=== PATIENT | female | born 1970 | race Caucasian/White ===

== ENCOUNTER 2022-04-10 17:11 | Emergency (ER) | payer OTHER ==
[~2022-04-10] VITALS: Ht 154.9 cm; Wt 76.7 kg
[~2022-04-10 17:11] MED LIST: ELOCON45 G1 TP; ZYRTEC10 MG PO
[2022-04-10] MEDS ORDERED: ALBUTEROL0.63 MG/3 IH (18:14)
[2022-04-10] MEDS ORDERED: MEDROLPACK PO (20:23)
[2022-04-10] MEDS ORDERED: XOPENEX0.63 MG/3 IH (20:23)
== END 2022-04-10 20:43 | disposition home or self-care (01) ==
LOC: ER 17:11
DX: J45.909 Unspecified asthma, uncomplicated (principal); Z20.822 Contact with and (suspected) exposure to COVID-19; R06.02 Shortness of breath

== ENCOUNTER 2022-11-16 05:57 | Day surgery (SDC) | payer OTHER ==
[~2022-11-16] VITALS: Ht 157.5 cm; Wt 76.2 kg
[~2022-11-16 05:57] MED LIST changes: +ALBUTEROL0.63 MG/3 IH; +MEDROLPACK PO; +XOPENEX0.63 MG/3 IH
[2022-11-16] MEDS ORDERED: MORGIDOX100 MG PO (09:19)
[2022-11-16] MEDS ORDERED: NAPR500T14 PO (09:19)
== END 2022-11-16 14:00 | disposition home or self-care (01) ==
LOC: CIR.AMB 05:57
PROVIDERS: ATTEND Obstetrics & Gynecology
DX: N92.0 Excessive and frequent menstruation with regular cycle (principal); N84.0 Polyp of corpus uteri; D25.0 Submucous leiomyoma of uterus; Z88.8 Allergy status to other drugs, medicaments and biological substances; Z20.822 Contact with and (suspected) exposure to COVID-19; N81.11 Cystocele, midline; Z87.891 Personal history of nicotine dependence

== ENCOUNTER → 2023-08-02 | Emergency (ER) | payer OTHER ==
[~2023-08-02] VITALS: Ht 157.5 cm; Wt 77.1 kg
[~2023-08-02] MED LIST changes: +MORGIDOX100 MG PO; +NAPR500T14 PO
[2023-08-02 09:57] LABS: HEMATOCRIT 38.8 % (36.0-45.00); MEAN CELL VOLUME 92.8 fL (80.00-100.00); MEAN CORPUSCULAR HGB CONC 33.5 g/dl (32.0-36.0); PLATELET COUNT 301 K/uL (150-450); RED BLOOD COUNT 4.18 M/uL (4.00-6.00); RED CELL DISTRIBUTION WIDTH 13.4 % (11.5-14.5)
[2023-08-02 12:58] LABS: URINE APPEARANCE CLEAR; URINE BILIRRUBIN NEGATIVE (NEGATIVE); URINE BLOOD NEGATIVE; URINE COLOR YELLOW; URINE GLUCOSE NEGATIVE (NEGATIVE)
[2023-08-02 12:59] LABS: PH,URINE 5.5; URINE LEUKOCYTE MODERATE; URINE NITRATE NEGATIVE; URINE PROTEIN NEGATIVE (NEGATIVE); URINE UROBILINOGEN 0.2 E.U./dl; URINE WBC 12.1 uL (0.0-23.2)
[2023-08-02 13:01] LABS: URINE BACTERIA 376.7 uL (0.0-1933); URINE EPITHELIAL CELLS 16.3 uL (0.0-38.8)
== END | disposition home or self-care (01) ==
LOC: ER 08:32
DX: U07.1 COVID-19 (principal); I10 Essential (primary) hypertension

== ENCOUNTER 2023-09-22 10:44 | Outpatient (CLI) | payer OTHER | END 2023-09-22 10:56 | disposition home or self-care (01) | LOC: RAD 10:44 | PROVIDERS: ATTEND Chiropractor | DX: M99.01 Segmental and somatic dysfunction of cervical region (principal); M54.2 Cervicalgia; M99.03 Segmental and somatic dysfunction of lumbar region; M99.04 Segmental and somatic dysfunction of sacral region; M99.05 Segmental and somatic dysfunction of pelvic region; M54.50 Low back pain, unspecified; M62.830 Muscle spasm of back ==

== ENCOUNTER 2023-10-30 11:39 | Emergency (ER) | payer OTHER ==
[~2023-10-30] VITALS: Ht 157.5 cm; Wt 77.1 kg
[2023-10-30] MEDS ORDERED: HUMALOG100 UNIT/2 SQ (11:48)
[2023-10-30] MEDS ORDERED: GUAIFENESIN/DEXTROMETHORPHAN 100 MG/5 ML ML PO ONE (14:30)
[2023-10-30] MEDS ORDERED: METHYLPREDNISOLONE SOD SUCC 125 MG VIAL IV ONE (14:30)
[2023-10-30 14:53] LABS: HEMATOCRIT 42.2 % (36.0-45.00); HEMOGLOBIN 14.4 g/dL (12.0-15.00); MEAN CELL VOLUME 93.8 fL (80.00-100.00); MEAN CORPUSCULAR HEMOGLOBIN 31.9 pg (27.00-32.0); PLATELET COUNT 284 K/uL (150-450); RED CELL DISTRIBUTION WIDTH 13.9 % (11.5-14.5)
== END 2023-10-30 18:18 | disposition home or self-care (01) ==
LOC: ER 11:40
PROVIDERS: General Practice
DX: B34.9 Viral infection, unspecified (principal); R68.89 Other general symptoms and signs; Z20.822 Contact with and (suspected) exposure to COVID-19

== ENCOUNTER 2024-03-26 11:10 | Emergency (ER) | payer OTHER ==
[~2024-03-26] VITALS: Ht 157.5 cm; Wt 77.1 kg
[~2024-03-26 11:10] MED LIST changes: +HUMALOG100 UNIT/2 SQ
[2024-03-26 12:28] LABS: PH,URINE 6.5 (5.0-8.0); URINE APPEARANCE Cloudy; URINE BILIRRUBIN Negative (NEGATIVE); URINE BLOOD Negative; URINE COLOR Yellow; URINE GLUCOSE Negative (NEGATIVE); URINE KETONE Negative (NEGATIVE); URINE LEUKOCYTE Large; URINE NITRATE Negative; URINE PROTEIN Negative (NEGATIVE); URINE UROBILINOGEN 0.2 E.U./dl
[2024-03-26 12:29] LABS: URINE BACTERIA 837.8 uL (0.0-1933); URINE EPITHELIAL CELLS 134.3 uL (0.0-38.8); URINE WBC 427.7 uL (0.0-23.2)
[2024-03-26 12:39] LABS: URINE RBC 1.8 uL (0.0-20.8)
[2024-03-26 12:40] LABS: HEMATOCRIT 40.8 % (36.0-45.00); HEMOGLOBIN 13.7 g/dL (12.0-15.00); MEAN CELL VOLUME 93.2 fL (80.00-100.00); MEAN CORPUSCULAR HEMOGLOBIN 31.3 pg (27.00-32.0); MEAN CORPUSCULAR HGB CONC 33.5 g/dl (32.0-36.0); PLATELET COUNT 330 K/uL (150-450); RED BLOOD COUNT 4.37 M/uL (4.00-6.00); RED CELL DISTRIBUTION WIDTH 13.4 % (11.5-14.5)
[2024-03-26 13:04] LABS: CALCIUM 9.1 mg/dL (8.5-10.1); CREATININE SERUM 0.68 mg/dL (0.55-1.02); GFR 90.86; POTASSIUM 4.51 mEq/L (3.5-5.1)
[2024-03-26] MEDS ORDERED: KETOROLAC TROMETHAMINE 30 MG VIAL IM STA (13:23)
[2024-03-26] MEDS ORDERED: CEFTRIAXONE SODIUM 1,000 MG VIAL IM STA (13:23)
== END 2024-03-26 13:46 | disposition home or self-care (01) ==
LOC: ER 11:10
PROVIDERS: General Practice
DX: N39.0 Urinary tract infection, site not specified (principal); M54.9 Dorsalgia, unspecified; Z88.8 Allergy status to other drugs, medicaments and biological substances

== ENCOUNTER 2024-08-06 17:28 | Emergency (ER) | payer OTHER ==
[~2024-08-06] VITALS: Ht 157.5 cm; Wt 79.4 kg
[2024-08-06] MEDS ORDERED: KETOROLAC TROMETHAMINE 60 MG VIAL IM STA (19:50)
[2024-08-06] MEDS ORDERED: DEXAMETHASONE SODIUM PHOSPHATE 4 MG/ML VIAL IM STA (19:51)
[2024-08-06] MEDS ORDERED: ACETAMINOPHEN 500 MG GEL..CAP PO STA (19:52)
== END 2024-08-06 20:34 | disposition home or self-care (01) ==
LOC: ER 17:30
DX: G44.209 Tension-type headache, unspecified, not intractable (principal); Z88.8 Allergy status to other drugs, medicaments and biological substances

== ENCOUNTER 2024-12-08 13:23 | Emergency (ER) | payer OTHER ==
[~2024-12-08] VITALS: Ht 160 cm; Wt 77.1 kg
[2024-12-08] MEDS ORDERED: BUTALB/ACETAMINOPHEN/CAFFEINE 1 TAB TABLET PO ONE ×2 (14:00)
[2024-12-08 14:27] LABS: HEMATOCRIT 42.5 % (36.0-45.00); HEMOGLOBIN 14.4 g/dL (12.0-15.00); MEAN CELL VOLUME 93.1 fL (80.00-100.00); MEAN CORPUSCULAR HEMOGLOBIN 31.5 pg (27.00-32.0); MEAN CORPUSCULAR HGB CONC 33.9 g/dl (32.0-36.0); PLATELET COUNT 349 K/uL (150-450); RED BLOOD COUNT 4.57 M/uL (4.00-6.00); RED CELL DISTRIBUTION WIDTH 13.6 % (11.5-14.5)
[2024-12-08 14:37] LABS: ALBUMIN 3.6 gm/dL (3.4-5.0); BILIRUBIN TOTAL 0.29 mg/dL (0.3-1.2); CALCIUM 9.1 mg/dL (8.5-10.1); CREATININE SERUM 0.79 mg/dL (0.55-1.02); GFR 76.42; GLOBULINA 4.5 G/DL (2.4-3.5); POTASSIUM 4.33 mEq/L (3.5-5.1); TOTAL PROTEIN 8.1 gm/dL (6.4-8.2)
[2024-12-08 14:45] LABS: COVID-19 AG NEGATIVE (NEGATIVE)
[2024-12-08 14:46] LABS: INFLUENZA A AG NEGATIVE (NEGATIVE)
[2024-12-08 15:09] LABS: INR 0.94; PARTIAL THROMBOPLASTIN TIME 27.6 SECONDS (22.0-34.0); PROTHROMBIN TIME 10.3 SECONDS (9.0-11.5)
[2024-12-08] MEDS ORDERED: BUTALBIT-ACETA1 EACH PO (15:54)
== END 2024-12-08 16:02 | disposition home or self-care (01) ==
LOC: ER 13:24
PROVIDERS: General Practice
DX: R51.9 Headache, unspecified (principal); Z20.822 Contact with and (suspected) exposure to COVID-19; Z88.8 Allergy status to other drugs, medicaments and biological substances